=== PATIENT | female | born 1950 | race Caucasian/White ===

== ENCOUNTER 2025-06-08 15:27 | Emergency (ER) | payer OTHER, MEDICARE ==
[~2025-06-08] VITALS: Ht 152.4 cm; Wt 113.4 kg
--- NOTE | 2025-06-08 15:50 | ERN ---
ED Note History of Present Illness Stated Complaint: LOWER BACK PAIN Chief Complaint: Low Back Pain/Injury Time Seen by MD: 15:29 Dictation: PATIENT IS A 75-YEAR-OLD FEMALE COMING IN VIA EMS WITH COMPLAINTS OF LOWER THORACIC AND LUMBAR PAIN THAT RADIATES TO BILATERAL HIPS ONSET TWO WEEKS AGO. SHE STATES SHE WAS WALKING AND SHE HAD A SLIP FALL LANDED ON HER BACK. SHE SAID SHE HAS HAD A HISTORY OF PRIOR BACK INJURIES IN HIS ON TRAMADOL AND GABAPENTIN FOR HER CHRONIC BACK PAIN. HAS HAD NO PRIOR BACK SURGERIES. SHE STATES SHE HAS HAD A PRIOR MRI IN THE PAST. NO CHANGE IN BOWEL OR BLADDER FUNCTION STATES SHE HAS NOT SEEN HER DOCTOR BECAUSE HE IS ON VACATION. SHE DENIES SCIATICA OR RADICULOPATHY. Allergies: Coded Allergies: aspirin (Unverified Allergy, Unknown, 06/08/25) hydrocodone (Unverified Allergy, Unknown, 06/08/25) Home Meds Active Scripts Omeprazole (Omeprazole) 40 Mg Capsule.dr, 1 CAP PO DAILY for 30 Days, #30 CAP 0 Refills Prov:GIO MCFARLAND NP 06/08/25 Prednisone (Prednisone) 20 Mg Tablet, 1 TAB PO AD for 6 Days, #14 TAB 0 Refills TAKE 1 TAB BY MOUTH THREE TIMES PER DAY X3 DAYS, THEN TAKE 1 TAB BY MOUTH TWICE A DAY X2 DAYS, THEN TAKE 1 TAB BY MOUTH ONCE A DAY X1 DAY. Prov:GIO MCFARLAND NP 06/08/25 Past Medical History Past Medical History: A-Fib, Hypertension Surgical History: None History: Not Applicable RN Note Reviewed/Agreed w/PFSH: Yes Review of System Dictation CONSTITUTIONAL: NEGATIVE EXCEPT FOR HPI HEAD/FACE: NEGATIVE EXCEPT FOR HPI EENT: NEGATIVE EXCEPT FOR HPI RESPIRATORY: NEGATIVE EXCEPT FOR HPI GASTROINTESTINAL/ABDOMINAL: NEGATIVE EXCEPT FOR HPI GENITOURINARY: NEGATIVE EXCEPT FOR HPI MUSCULOSKELETAL: NEGATIVE EXCEPT FOR HPI LOWER THORACIC AND LUMBAR PAIN INTEGUMENTARY: NEGATIVE EXCEPT FOR HPI NEUROLOGICAL/PSYCH: NEGATIVE EXCEPT FOR HPI HEMATOLOGIC/LYMPHATIC: NEGATIVE EXCEPT FOR HPI ALL SYSTEMS NEGATIVE, EXCEPT NOTED ABOVE. 13 POINT REVIEW OF SYSTEMS ASSESSED AND ALL NEGATIVE EXCEPT FOR ABOVE. Initial Vital Sign VS Vital Signs Date Time Temp Pulse Resp B/P (MAP) Pulse Ox O2 Delivery O2 Flow Rate FiO2 06/08/25 15:29 98.4 78 19 131/85 99 0 06/08/25 17:27 Room Air* 21 Physical Exam Dictation VITAL SIGNS REVIEWED GENERAL APPEARANCE: ALERT, ORIENTED X 3, MODERATE ACUTE DISTRESS, WELL DEVELOPED, NOURISHED. HEAD AND FACE: NON-TRAUMATIC. EYES: PERRL, PINK CONJUNCTIVAS, EYELID NO TRAUMA, ANTERIOR CHAMBER WITH ARCUS SENILIS. EARS: PINNAS INTACT AND NO SIGNS OF TRAUMA OR ERYTHEMA EAR CANALS CLEAR AND NO DISCHARGE TM NO ERYTHEMA NOSE: NO DISCHARGE, NO BLEEDING. OROPHARYNX: MOUTH NORMAL, TONGUE PINK, PHARYNX CLEAR,NO ERYTHEMA, TONSILS NO EXUDATES, NO ABSCESSES NOTED, MUCOUS MEMBRANE MOIST NECK: SUPPLE, NON-TENDER, NO THYROMEGALY, NO MASSES, NO JVD, NO BRUITS BREAST:DEFERRED CHEST:NO TENDERNESS, NO CREPITUS, NO PARADOXICAL MOVEMENT, NO RETRACTIONS LUNGS:CLEAR, WELL-VENTILATED, SYMMETRIC, NO RALES, NO WHEEZING, NO RHONCHI, NO STRIDOR, GOOD BREATH SOUNDS BILATERALLY HEART: REGULAR RATE, REGULAR RHYTHM, NO MURMUR, NO GALLOPS VASCULAR: NO PERIPHERAL EDEMA, ABDOMEN: SOFT, POSITIVE BOWEL SOUNDS, NONDISTENDED, NO GUARDING, NONTENDER, NO REBOUND, NO MASSES NO HEPATOMEGALY, NO SPLENOMEGALY, NO BRIZUELA'S SIGN, NO HERNIAS. RECTAL: DEFERRED GENITAL: DEFERRED NEUROLOGICAL: NORMAL SPEECH, MOTOR FUNCTION INTACT, SENSORY FUNCTION INTACT MUSCULOSKELETAL: NECK NONTENDER, FULL RANGE OF MOTION, DIFFUSE LUMBOSACRAL AND LOWER THORACIC TENDERNESS. NO STEP-OFFS. EXTREMITIES: NONTENDER, FULL RANGE OF MOTION SKIN: COLOR PINK, DRY, NO TURGOR, NO RASH, NO LACERATIONS, NO ABRASIONS, NO CONTUSIONS. LYMPHATIC: DEFERRED Results (Laboratory/Radiology) Laboratory/Radiology 1710/thoracic and lumbar x-rays demonstrate Degenerative changes only EXAM: CR Lumbar Spine, 3 View. CLINICAL HISTORY: LUMBAR PAIN THAT RADIATES TO BILATERAL HIPS STATUS POST FALL TWO WEEKS AGO COMPARISON: None provided. FINDINGS: BONES: Old slight compression deformity L2. No acute fracture Generalized osteopenia ALIGNMENT: Alignment is within normal limits. No significant scoliosis. DISCS / DEGENERATIVE CHANGES: Mild to moderate degenerative changes SOFT TISSUES: The soft tissues are unremarkable. IMPRESSION: 1. Old slight compression deformity L2. 2. No acute fracture 3. Generalized osteopenia 4. Mild to moderate degenerative changes /[place] CR Thoracic Spine, 2 View. CLINICAL HISTORY: LOWER THORACIC PAIN STATUS POST FALL TWO WEEKS AGO COMPARISON: None provided. FINDINGS: BONES: Generalized osteopenia No fracture DISCS / DEGENERATIVE CHANGES: Degenerative changes SOFT TISSUES: The paraspinal soft tissue lines are unremarkable. The visualized lungs are clear. MISCELLANEOUS: Visualization of the upper thoracic spine is limited on the lateral view by overlying structures. IMPRESSION: 1. Degenerative changes 2. Generalized osteopenia 3. No fracture /[place] Labs Reviewed?: Yes ED Course ED Course Orders Procedure Category Date Status Time Lumbar Spine 2-3vws RAD 06/08/25 Resulted 15:46 Thoracic Spine 2vws RAD 06/08/25 Resulted 15:46 Dexamethasone 4mg/Ml PHA 06/08/25 Complete 1ml Vial (Dexametha 16:00 Ketorolac PHA 06/08/25 Complete Tromethamine 30mg/Ml 16:00 Cyclobenzaprine Hcl PHA 06/08/25 Complete (Cyclobenzaprine Hcl 16:00 Ketorolac PHA 06/08/25 Complete Tromethamine 30mg/Ml 16:00 Current Medications Medications (Trade) Dose Ordered Sig/[place] Route PRN Reason Start Time Stop Time Status Last Admin Dose Admin Cyclobenzaprine HCl (Cyclobenzaprine HCl) 10 mg ONCE ONCE PO 06/08/25 16:00 06/08/25 16:01 DC 06/08/25 16:31 Dexamethasone Sodium Phosphate (dexaMETHasone 4MG/ML 1ML VIAL) 8 mg ONCE ONCE IM 06/08/25 16:00 06/08/25 16:01 DC 06/08/25 16:32 Ketorolac Tromethamine (toRADol) 30 mg ONCE ONCE IM 06/08/25 16:00 06/08/25 16:01 DC 06/08/25 16:32 Ketorolac Tromethamine (toRADol) 30 mg ONCE ONCE IVP 06/08/25 16:00 06/08/25 16:00 DC Vital Signs Date Time Temp Pulse Resp B/P (MAP) Pulse Ox O2 Delivery O2 Flow Rate FiO2 06/08/25 17:27 98.1 76 16 109/62 95 Room Air* 0 21 06/08/25 15:29 98.4 78 19 131/85 99 0 Medical Decision Making [facility] 1712/medical decision-making based on empiric treatment for low back pain. X-rays with thoracic and lumbar spine demonstrate degenerative changes Patient discharged home with prednisone and omeprazole Told to increase tramadol for the next 5-7 days to 100 mg q.6 hours Referred to DX & DISP Disposition: Discharge Departure Impression: Primary Impression: Contusion of back Additional Impressions: DJD (degenerative joint disease), thoracic, DJD (degenerative joint disease), lumbar, Fall Condition: Stable Scripts Omeprazole (Omeprazole) 40 Mg Capsule.dr 1 CAP PO DAILY for 30 Days, #30 CAP 0 Refills Prov: GIO MCFARLAND NP 06/08/25 Prednisone (Prednisone) 20 Mg Tablet 1 TAB PO AD for 6 Days, #14 TAB 0 Refills TAKE 1 TAB BY MOUTH THREE TIMES PER DAY X3 DAYS, THEN TAKE 1 TAB BY MOUTH TWICE A DAY X2 DAYS, THEN TAKE 1 TAB BY MOUTH ONCE A DAY X1 DAY. Prov: GIO MCFARLAND NP 06/08/25 Additional Instructions: Follow-up with primary care provider in 1 to 2 days. Take medications as directed here in the emergency room. Okay to continue home medications unless otherwise discussed during your visit in the emergency room today. Return to your nearest emergency room if symptoms worsen or if there is no improvement. Call 911 if you need immediate assistance. Take Tylenol or Motrin [id number] as needed and if no contraindications are present. Increase oral hydration. A wound culture or urine culture was ordered here in the emergency room department please follow-up with primary care provider and advise them to get repeat ports from our facility. If you had any [place] wrap/splints that were applied here, please do not remove them until you see your primary care or specialty. Increase tramadol to 100 mg every 6 hours for the next 5-6 days. Take prednisone as directed with food until gone. Take omeprazole daily for the next 14 days. Call neurosurgeon for an appointment next 1-2 days. Referrals: SELF,REFERRAL (PCP) CRISTOFER MULLIGAN MD Time of Disposition: 17:15 I have reviewed the case, and I agree with, Diagnosis and Plan GIO MCFARLAND NP Jun 08, 2025 15:50
[2025-06-08] MEDS: CYCLOBENZAPRINE HCL 10 MG TABLET PO ONE (16:31)
[2025-06-08] MEDS ORDERED: OMEP40CA21 PO (17:16)
[2025-06-08] MEDS ORDERED: PRED20TA3 PO (17:16)
[2025-06-08 17:27] VITALS: BP 109/62; PULSE 76; RESP 16; TEMP 98; O2SAT 95
--- NOTE | 2025-06-08 17:36 | HMCIMG ---
EXAM: CR Thoracic Spine, 2 View. CLINICAL HISTORY: LOWER THORACIC PAIN STATUS POST FALL TWO WEEKS AGO COMPARISON: None provided. FINDINGS: BONES: Generalized osteopenia No fracture DISCS / DEGENERATIVE CHANGES: Degenerative changes SOFT TISSUES: The paraspinal soft tissue lines are unremarkable. The visualized lungs are clear. MISCELLANEOUS: Visualization of the upper thoracic spine is limited on the lateral view by overlying structures. IMPRESSION: 1. Degenerative changes 2. Generalized osteopenia 3. No fracture /[place]
--- NOTE | 2025-06-08 17:37 | HMCIMG ---
EXAM: CR Lumbar Spine, 3 View. CLINICAL HISTORY: LUMBAR PAIN THAT RADIATES TO BILATERAL HIPS STATUS POST FALL TWO WEEKS AGO COMPARISON: None provided. FINDINGS: BONES: Old slight compression deformity L2. No acute fracture Generalized osteopenia ALIGNMENT: Alignment is within normal limits. No significant scoliosis. DISCS / DEGENERATIVE CHANGES: Mild to moderate degenerative changes SOFT TISSUES: The soft tissues are unremarkable. IMPRESSION: 1. Old slight compression deformity L2. 2. No acute fracture 3. Generalized osteopenia 4. Mild to moderate degenerative changes /[place]
== END 2025-06-08 18:15 | disposition home or self-care (01) ==
LOC: EDBD 15:27 → EDH 15:27
DX: S30.0XXA Contusion of lower back and pelvis, initial encounter (principal); S20.229A Contusion of unspecified back wall of thorax, initial encounter; I10 Essential (primary) hypertension; I48.91 Unspecified atrial fibrillation; Z79.899 Other long term (current) drug therapy; Z88.5 Allergy status to narcotic agent; Z88.6 Allergy status to analgesic agent; W01.0XXA Fall on same level from slipping, tripping and stumbling without subsequent striking against object, initial encounter; Y93.01 Activity, walking, marching and hiking; Y92.89 Other specified places as the place of occurrence of the external cause; Y99.8 Other external cause status
CPT/HCPCS: 99283; 72100; 72070; 96372 ×2; J1100; J1885